=== PATIENT | female | born 1935 | race African-American/Black ===

== ENCOUNTER → 2016-12-08 | Day surgery (SDC) | payer MEDICARE ==
[~2016-12-08] VITALS: Ht 165.1 cm; Wt 90.7 kg
[~2016-12-08] MED LIST: ACETYLCHOLINE CHLORIDE INTRAOCULAR SOLUTION 1:100 ELECTROLYTE DILUENT IO ONE; ALLO300T2 PO; ATOR20TA PO; BALANCED SALT IRRIG SOLN 15ML ONE; BALANCED SALT IRRIG SOLN COMB1 500ML OP ONE; BUPIVACAINE HCL/PF 0.75% (7.5MG/ML) 10ML ONE; CEFAZOLIN SODIUM 1000MG/VIAL ONE; CIPROFLOXACIN 0.3% OPHTH SOLN 2.5ML ONE; CYCLOPENTOLATE HCL 1% OPHTH DROPS 2ML LEFTEYE ONE; DEXAMETHASONE 4MG/ML 1ML VIAL ONE; DEXL60CA3 PO; DULO60CA44 PO; FENTANYL CITRATE/PF 50MCG/ML 2ML VIAL ONE; FOLI-68 PO; HYALURONATE SODIUM 14 MG/ML 0.85ML SYRINGE IO ONE; HYDROMORPHONE HCL/PF 2MG/ML CPJ IV PRN; LABETALOL HCL 20MG/4ML CARPUJECT IV PRN; LACTATED RINGERS 1,000 ML IV SCH; LIDOCAINE HCL 1% 20ML VIAL (Pyxis) INJ ONE; LIDOCAINE HCL 2%/EPINEPHRINE 1:100,000 20 ML VIAL INFIL ONE; LIDOCAINE HCL/PF 2% 20 MG/ML 10ML VIAL ONE; MEPERIDINE HCL/PF 25MG/ML CPJ IV PRN; MIDAZOLAM HCL 2 MG/2 ML VIAL ONE; NEO/POLYMYX B SULF/DEXAMETH OPHTH OINT 3.5GM ONE; ONDANSETRON HCL 4MG/2ML VIAL IV PRN; ONDANSETRON HCL 4MG/2ML VIAL ONE; PHENYLEPHRINE HCL 10% OPHTH DROPS 5ML LEFTEYE ONE; PREDNISOLONE ACETATE 1% OPHTH DROPS 1ML ONE; PROPOFOL 200MG/20ML VIAL IV ONE; SODIUM CHLORIDE 0.9% 10ML VIAL ONE; TETRACAINE 0.5% OPHTH DROPS 4ML ONE; TROPICAMIDE 1% OPHTH DROPS 15ML LEFTEYE ONE; VALS320T2 PO; WARF5TAB76 PO; WARF7.5T22 PO
== END | disposition home or self-care (01) ==
LOC: OR 06:00
PROVIDERS: ATTEND Ophthalmology
DX: H25.89 Other age-related cataract (principal); I10 Essential (primary) hypertension; E11.9 Type 2 diabetes mellitus without complications; K21.9 Gastro-esophageal reflux disease without esophagitis; M81.8 Other osteoporosis without current pathological fracture; E66.3 Overweight; Z86.718 Personal history of other venous thrombosis and embolism; Z88.2 Allergy status to sulfonamides; Z91.040 Latex allergy status; Z98.890 Other specified postprocedural states; Z96.652 Presence of left artificial knee joint; M19.042 Primary osteoarthritis, left hand; M19.041 Primary osteoarthritis, right hand
CPT/HCPCS: 66984; A4216; J0690; J1100; J2250; J2405; J3010; J3490; J7120; V2632; J2704